=== PATIENT | female | born 1955 | race African-American/Black ===

== ENCOUNTER 2016-11-25 14:47 | Emergency (ER) | payer OTHER ==
[~2016-11-25] VITALS: Ht 170.2 cm; Wt 104.3 kg
[~2016-11-25 14:47] MED LIST: CEPH-264 PO; TRAM50TA PO; TRIA15CR2 TP
[2016-11-25 16:02] LABS: HEMOGLOBIN ISTAT 14.6 gm/dL; POTASSIUM ISTAT 3.8 mmol/L (3.5-5.0)
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
[2016-11-25 16:47] LABS: BILIRUBIN,URINE NEG (NEG); CLARITY,URINE CLEAR; COLOR,URINE YELLOW; GLUCOSE,URINE NEG (NEG); NITRITE,URINE NEG (NEG); UROBILINOGEN,URINE 0.2 mg/dL (0.2 mg/dL)
[2016-11-25 16:48] LABS: AMORPHOUS SEDIMENT,UR PRESENT /HPF; BACTERIA,URINE FEW /HPF (0-FEW); SQUAMOUS EPITHELIAL CELL,UR OCC /LPF
[2016-11-25] MEDS ORDERED: ONDANSETRON ODT 4 MG TAB.RAPDIS PO ONE (17:30)
[2016-11-25] MEDS ORDERED: SMZ/TMP 800/160MG TABLET. PO ONE (17:30)
[2016-11-25 17:38] VITALS: BP 129/70
== END 2016-11-25 17:39 | disposition home or self-care (01) ==
LOC: ER 14:47
DX: N39.0 Urinary tract infection, site not specified (principal); R51 Headache; R47.81 Slurred speech; I10 Essential (primary) hypertension; J44.9 Chronic obstructive pulmonary disease, unspecified; F17.210 Nicotine dependence, cigarettes, uncomplicated; Z88.1 Allergy status to other antibiotic agents; Z88.6 Allergy status to analgesic agent; Z88.5 Allergy status to narcotic agent; V49.9XXA Car occupant (driver) (passenger) injured in unspecified traffic accident, initial encounter; Y93.89 Activity, other specified; Y99.8 Other external cause status; Y92.89 Other specified places as the place of occurrence of the external cause
CPT/HCPCS: 80047; 81001; 84484; 87086; 99284; Q0162

== ENCOUNTER 2017-07-29 12:11 | Emergency (ER) | payer OTHER ==
[~2017-07-29] VITALS: Ht 165.1 cm; Wt 92.1 kg
--- NOTE | 2017-07-29 12:34 | EKG ---
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
--- NOTE | 2017-07-29 12:36 | PHYS DOC ---
General Chief Complaint: JOHN Stated Complaint: DENTAL/JAW PAIN, SHOULDER PAIN,FLANK PAIN Time Seen by MD: 12:32 Source: patient Exam Limitations: no limitations Problems: History of Present Illness Initial Comments Patient is a 61-year-old female who comes to the ED with multiple complaints. Patient states that yesterday while watching TV she learned that shoulder and jaw pain can be related to heart disease and she is concerned because she has both. Jaw pain: Patient states she's had right lower molar dental pain for the past 2 days described as sharp and throbbing 3 on a pain scale. The pain is worse with eating better with rest patient states that she has had a lifetime of poor oral hygiene and needs multiple teeth pulled she has not seen a dentist in many years. She denies any jaw or gingival swelling no discharge no actual jaw bone pain no headache fever chills or sweats. Shoulder pain: Patient has also had right shoulder pain off and on for the past 3 weeks. Pain is described as muscular 4 on a pain scale at its worst. Pain is only with certain movements he denies numbness tingling weakness or radiating symptoms. No known recent injury. Patient denies chest pain shortness of breath nausea and diaphoresis she is a smoker. No prior cardiac workups no history of chest pain, no family history of coronary artery disease Timing/Duration: constant, other Severity: moderate Modifying Factors: worse with movement, improves with rest Associated Symptoms: cough (chronic), other Allergies: Coded Allergies: acetaminophen (Verified Allergy, Intermediate, 02/16/16) amoxicillin (Verified Allergy, Intermediate, KEFLEX OK, 02/16/16) clavulanic acid (Verified Allergy, Intermediate, 02/16/16) codeine (Verified Allergy, Intermediate, 02/16/16) hydrocodone (Verified Allergy, Intermediate, 02/16/16) Past Medical History Medical History: other (paranoia, depression, COPD, anxiety, chronic sinusitis) Surgical History: other (appendectomy, sinus surgery) Social History Smoker: cigarettes Alcohol: none Drugs: none Review of Systems Constitutional: denies chills, denies diaphoresis, denies fever, denies malaise EENTM: denies ear pain, denies ear discharge, nose congestion, denies throat pain, denies throat swelling, mouth pain, denies mouth swelling Respiratory: cough, denies shortness of breath, denies wheezing Cardiovascular: denies chest pain, denies palpitations, denies syncope Gastrointestinal: denies abdominal pain, denies diarrhea, denies nausea, denies vomiting Genitourinary: denies dysuria, denies frequency, denies hematuria Musculoskeletal: denies back pain, denies joint pain, denies joint swelling, muscle pain, denies muscle stiffness, denies neck pain Psychiatric/Neurological: see HPI, denies headache Hematologic/Lymphatic: denies blood clots, denies easy bleeding, denies easy bruising Physical Exam General Appearance: no apparent distress Eyes: bilateral eye normal inspection, bilateral eye PERRL, bilateral eye EOMI Ear, Nose, Throat: hearing grossly normal, nasal congestion, other (dental caries and poor oral hygiene globally no focal gingival swelling no bony tenderness no purulence airway is patent) Neck: non-tender, full range of motion, supple Respiratory: chest non-tender, no respiratory distress Cardiovascular: normal peripheral pulses, regular rate, rhythm Gastrointestinal: non tender, soft Back: no CVA tenderness, no vertebral tenderness Extremities: no pedal edema, no calf tenderness, other (right deltoid tenderness no swelling ecchymosis or palpable muscle defect, otherwise SITS intact FROM no bony TTP) 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 I-STAT BMP and troponin unremarkable Patient reassured, I discussed signs and symptoms to monitor as well as indications for urgent return to the department. I discussed ghqn-dzk-ororywy prescription medications as well as ubgr-ky-tvqk discussion of departure instructions. Patient's questions were answered and she expressed agreement and understanding of the treatment plan. Departure Time of Disposition: 14:08 Disposition: 01 HOME, SELF-CARE Diagnosis: dental caries, tobaccoism, right shoulder strain Condition: GOOD Patient Instructions: Dental Caries, RICE - Routine Care for Injuries, Easy-to- Read, Smoking Cessation, Tips For Success Additional Instructions: Please review the patient education materials given by ED staff. RICE, see handout. Activity as tolerated. Continue her efforts to stop smoking. Zyoi-mil-obwdzrk ibuprofen for discomfort. Prescription: Clindamycin Listerine gargles 3 times daily after brushing and flossing. Follow-up with your doctor in 5-7 days for recheck. Follow-up with a dentist as soon as possible. Return to ED with new or changing symptoms. JAZZY COONEY DO Jul 29, 2017 12:36
[2017-07-29 13:50] LABS: HEMOGLOBIN ISTAT 12.9 gm/dL; POTASSIUM ISTAT 3.9 mmol/L (3.5-5.0)
[2017-07-29] MEDS ORDERED: CLIN300C8 PO (14:07)
[2017-07-29 14:15] VITALS: BP 144/61
== END 2017-07-29 14:17 | disposition home or self-care (01) ==
LOC: ER 12:11
DX: K02.9 Dental caries, unspecified (principal); S46.911A Strain of unspecified muscle, fascia and tendon at shoulder and upper arm level, right arm, initial encounter; J44.9 Chronic obstructive pulmonary disease, unspecified; F41.9 Anxiety disorder, unspecified; F32.9 Major depressive disorder, single episode, unspecified; F17.210 Nicotine dependence, cigarettes, uncomplicated; Z88.6 Allergy status to analgesic agent; Z88.1 Allergy status to other antibiotic agents; Z88.5 Allergy status to narcotic agent; X58.XXXA Exposure to other specified factors, initial encounter; Y93.89 Activity, other specified; Y99.8 Other external cause status; Y92.89 Other specified places as the place of occurrence of the external cause
CPT/HCPCS: 36415; 80047; 84484; 85014; 85018; 93005; 99283

== ENCOUNTER → 2018-01-16 | Outpatient (CLI) | payer MEDICARE ==
[~2018-01-16] MED LIST changes: +CLIN300C8 PO
[2018-01-16 09:48] LABS: CREATININE 0.9 mg/dL (0.6-1.0); GFR 76.8; POTASSIUM 3.7 mmol/L (3.5-5.1)
[2018-01-16 09:50] LABS: BASO # 0.1 x10^3/uL (0.0-0.2); BASO % 1 % (0-3); EOS # 0.4 x10^3/uL (0.0-0.7); EOS % 4 % (0-3); HEMATOCRIT 37.6 % (36.0-47.0); HEMOGLOBIN 12.5 g/dL (12.0-15.5); LYMPH # 2.6 x10^3/uL (1.0-4.8); LYMPH % 32 % (24-48); MEAN CORPUSCULAR HEMOGLOBIN 30 pg (25-35); MEAN CORPUSCULAR HGB CONC 33 g/dL (31-37); MEAN CORPUSCULAR VOLUME 89 fL (79-100); MONO # 0.9 x10^3/uL (0.0-1.1); MONO % 11 % (0-9); NEUT # 4.2 x10^3uL (1.8-7.7); NEUT % 52 % (31-73); PLATELET COUNT 389 x10^3/uL (140-400); RED BLOOD COUNT 4.25 x10^6/uL (3.50-5.40); RED CELL DISTRIBUTION WIDTH 16.3 % (11.5-14.5); WHITE BLOOD COUNT 8.1 x10^3/uL (4.0-11.0)
== END | disposition home or self-care (01) ==
LOC: LAB 08:55
PROVIDERS: ATTEND General Practice
DX: F32.9 Major depressive disorder, single episode, unspecified (principal); E55.9 Vitamin D deficiency, unspecified; I10 Essential (primary) hypertension; J44.9 Chronic obstructive pulmonary disease, unspecified; R79.89 Other specified abnormal findings of blood chemistry; Z87.891 Personal history of nicotine dependence
CPT/HCPCS: 36415; 80048; 80061; 82306; 85025

== ENCOUNTER → 2018-02-05 | Outpatient (CLI) | payer MEDICARE ==
--- NOTE | 2018-02-13 09:00 | RAD ---
DATE: 02/05/2018 3:00 PM EXAM: MAMMO ABDULKADIR SCREENING BILATERAL HISTORY: routine screening evaluation. COMPARISON: 12/01/2015, 12/12/2016 Bilateral CC and MLO views of the breasts were performed. Bilateral breast tomosynthesis was performed in CC and MLO projections. This study was interpreted with the benefit of Computerized Aided Detection (CAD ). Breast Density: The breast parenchyma is primarily fatty replaced. Breast parenchyma level density A. FINDINGS: No suspicious masses, microcalcifications or architectural distortion is present to suggest malignancy in either breast. The visualized axillae are unremarkable. IMPRESSION: No mammographic evidence of malignancy. BI-RADS CATEGORY: 1 NEGATIVE RECOMMENDED FOLLOW-UP: 12M 12 MONTH FOLLOW-UP Annual screening mammography is recommended, unless clinically indicated sooner based on symptoms or change in physical exam. PQRS compliance statement: Patient information was entered into a reminder system with a target due date for the next mammogram. Mammography is a sensitive method for finding small breast cancers, but it does not detect them all and is not a substitute for careful clinical examination. A negative mammogram does not negate a clinically suspicious finding and should not result in delay in biopsying a clinically suspicious abnormality. "Our facility is accredited by the [employer] Mammography Program." JACIELD
== END | disposition home or self-care (01) ==
LOC: MAMMO 12:38
PROVIDERS: ATTEND General Practice
DX: Z12.31 Encounter for screening mammogram for malignant neoplasm of breast (principal); I10 Essential (primary) hypertension; E78.5 Hyperlipidemia, unspecified; E55.9 Vitamin D deficiency, unspecified; J44.9 Chronic obstructive pulmonary disease, unspecified; Z87.891 Personal history of nicotine dependence; Z88.1 Allergy status to other antibiotic agents; Z88.8 Allergy status to other drugs, medicaments and biological substances; Z88.5 Allergy status to narcotic agent; Z88.6 Allergy status to analgesic agent
CPT/HCPCS: 77063; 77067

== ENCOUNTER → 2019-03-18 | Outpatient (CLI) | payer MEDICARE ==
--- NOTE | 2019-03-18 15:24 | RAD ---
DATE: 03/18/2019 EXAM: MAMMO ABDULKADIR SCREENING BILATERAL HISTORY: Routine screening COMPARISON: 12/01/2015, 12/12/2016, 02/05/2018 mammographic exams This study was interpreted with the benefit of Computerized Aided Detection (CAD). Breast Density: SCATTERED The breast parenchyma shows scattered fibroglandular densities. Breast parenchyma level B. FINDINGS: No new mass, calcification, or distortion. IMPRESSION: Stable BI-RADS CATEGORY: 1 NEGATIVE RECOMMENDED FOLLOW-UP: 12M 12 MONTH FOLLOW-UP PQRS compliance statement: Patient information was entered into a reminder system with a target due date in one year for the next mammogram. Mammography is a sensitive method for finding small breast cancers, but it does not detect them all and is not a substitute for careful clinical examination. A negative mammogram does not negate a clinically suspicious finding and should not result in delay in biopsying a clinically suspicious abnormality. "Our facility is accredited by the [employer] Mammography Program."
== END | disposition home or self-care (01) ==
LOC: MAMMO 09:54
PROVIDERS: ATTEND General Practice
DX: Z12.31 Encounter for screening mammogram for malignant neoplasm of breast (principal)
CPT/HCPCS: 77063; 77067

== ENCOUNTER 2019-06-07 12:34 | Emergency (ER) | payer MEDICARE ==
[~2019-06-07] VITALS: Ht 165.1 cm; Wt 92.1 kg
[2019-06-07 12:45] VITALS: BP 169/66
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
[2019-06-07] MEDS ORDERED: IPRATRPIUM/ALBUTEROL 0.5/2.5MG 3 ML NEBU. NEB ONE (13:00)
[2019-06-07] MEDS ORDERED: predniSONE 10 MG TABLET PO ONE (13:00)
[2019-06-07] MEDS ORDERED: PRED50TA PO (13:19)
[2019-06-07] MEDS ORDERED: ALBU2.5V8 IH (13:19)
== END 2019-06-07 13:23 | disposition home or self-care (01) ==
LOC: ER 12:34
DX: J45.21 Mild intermittent asthma with (acute) exacerbation (principal); F41.9 Anxiety disorder, unspecified; J44.9 Chronic obstructive pulmonary disease, unspecified; I10 Essential (primary) hypertension; F32.9 Major depressive disorder, single episode, unspecified; F17.200 Nicotine dependence, unspecified, uncomplicated; Z88.1 Allergy status to other antibiotic agents; Z88.5 Allergy status to narcotic agent; Z88.8 Allergy status to other drugs, medicaments and biological substances
CPT/HCPCS: 94640; 99283; J7512; J7620

== ENCOUNTER 2019-06-14 22:30 | Inpatient (IN) | payer MEDICARE ==
[~2019-06-14] VITALS: Ht 165.1 cm; Wt 108.0 kg
[~2019-06-14 22:30] MED LIST changes: +ALBU2.5V8 IH; +PRED50TA PO
--- NOTE | 2019-06-14 23:09 | PHYS DOC ---
Past History Past Medical History: Anxiety, Asthma, COPD, Depression, Hypertension, Lung Disease, Other Past Surgical History: Other Additional Past Surgical Histo: sinus surgery Smoking: Less than 1pk/day Alcohol Use: None Drug Use: None Adult General Chief Complaint Chief Complaint: SHORTNESS OF BREATH [facility] HPI 63-year-old female presents with shortness of breath. She has had worsening shortness of breath for the last 2 days. This evening, she just feels that she can't get comfortable when she tries to lie down to go to sleep. She is feeling more short of breath. She's had increased cough with yellowish sputum. Patient has a history of COPD. She was seen here one week ago and placed on oral prednisone. She was feeling better after that episode, but that worse last couple days. Patient denies fever or chills. She also complains of an abdominal fullness. She doesn't say it hurts is just that it feels more full she doesn't know why. She has not increased her baseline 2 L of oxygen. Her oxygen saturations been okay, she just feels more short of breath. Review of Systems Review of Systems Constitutional: Denies fever or chills [] Eyes: Denies change in visual acuity, redness, or eye pain [] HENT: Nasal congestion[] Respiratory: Productive cough with shortness of breath [] Cardiovascular: No additional information not addressed in HPI [] GI: Abdominal fullness. Denies nausea, vomiting, bloody stools or diarrhea [] : Denies dysuria or hematuria [] Musculoskeletal: Denies back pain or joint pain [] Integument: Denies rash or skin lesions [] Neurologic: Denies headache, focal weakness or sensory changes [] Endocrine: Denies polyuria or polydipsia [] All other systems were reviewed and found to be within normal limits, except as documented in this note. Allergies Allergies Allergies Coded Allergies Type Severity Reaction Last Updated Verified codeine Allergy Intermediate 02/16/16 Yes hydrocodone Allergy Intermediate 02/16/16 Yes Physical Exam Physical Exam Constitutional: Well developed, morbidly obese, well nourished, no acute distress, non-toxic appearance. [] HENT: Normocephalic, atraumatic, bilateral external ears normal, oropharynx moist, no oral exudates, nose normal. [] Eyes: PERRLA, EOMI, conjunctiva normal, no discharge. [] Neck: Normal range of motion, no tenderness, supple, no stridor. [] Cardiovascular:Heart rate regular rhythm, no murmur [] Lungs & Thorax: Expiratory wheezes at the left base. Decreased breath sounds throughout bilaterally[] Abdomen: Bowel sounds normal, soft, no tenderness, no masses, no pulsatile masses. [] Skin: Warm, dry, no erythema, no rash. [] Back: No tenderness, no CVA tenderness. [] Extremities: No tenderness, no cyanosis, no clubbing, ROM intact, no edema. [] Neurologic: Alert and oriented X 3, normal motor function, normal sensory function, no focal deficits noted. [] Psychologic: Affect normal, judgement normal, mood normal. [] Current Patient Data Vital Signs Vital Signs Date Time Temp Pulse Resp B/P (MAP) Pulse Ox O2 Delivery O2 Flow Rate FiO2 06/14/19 22:44 97.9 91 20 88 Room Air EKG EKG Sinus rhythm, rate 88, normal axis, no ST elevations or depressions. Prolonged QT[] Radiology/Procedures Radiology/Procedures [] Course & Med Decision Making Course & Med Decision Making Pertinent Labs and Imaging studies reviewed. (See chart for details) The patient appears to be having a COPD exacerbation. I will treat her with a DuoNeb treatment and 125 of Solu-Medrol. The patient was replaced on oral steroids by her primary care physician after her ED visit 7 days ago. She appears to be failing outpatient COPD treatment. I will admit her to the hospital. She is in agreement with this plan. I spoke with Dr. Cooley and he has accepted her for admission. [] Dragon Disclaimer Dragon Disclaimer This electronic medical record was generated, in whole or in part, using a voice recognition dictation system. Departure Departure: Impression: Primary Impression: Hypokalemia Additional Impression: COPD exacerbation Disposition: ADMITTED INPATIENT Admitting Physician: Marcos Cooley Condition: STABLE Referrals: LAUREL ESPINOSA MD (PCP) Problem Qualifiers RAJAN DAVIS DO Jun 14, 2019 23:09
[2019-06-14] MEDS ORDERED: methylPREDNISolone SOD SUCC PF 125 MG/2 ML VIAL. IV ONE (23:30)
[2019-06-14] MEDS ORDERED: IPRATRPIUM/ALBUTEROL 0.5/2.5MG 3 ML NEBU. NEB ONE (23:30)
[2019-06-14 23:37] LABS: BASO # 0.1 x10^3/uL (0.0-0.2); BASO % 1 % (0-3); EOS # 0.1 x10^3/uL (0.0-0.7); EOS % 1 % (0-3); HEMATOCRIT 38.7 % (36.0-47.0); HEMOGLOBIN 12.8 g/dL (12.0-15.5); LYMPH # 3.7 x10^3/uL (1.0-4.8); LYMPH % 24 % (24-48); MEAN CORPUSCULAR HEMOGLOBIN 29 pg (25-35); MEAN CORPUSCULAR HGB CONC 33 g/dL (31-37); MEAN CORPUSCULAR VOLUME 87 fL (79-100); MONO # 1.2 x10^3/uL (0.0-1.1); MONO % 8 % (0-9); NEUT # 10.5 x10^3uL (1.8-7.7); NEUT % 67 % (31-73); PLATELET COUNT 398 x10^3/uL (140-400); RED BLOOD COUNT 4.48 x10^6/uL (3.50-5.40); WHITE BLOOD COUNT 15.6 x10^3/uL (4.0-11.0)
[2019-06-14 23:44] LABS: CALCIUM 9.1 mg/dL (8.5-10.1); GFR 67.8
[2019-06-14 23:50] LABS: ALBUMIN 3.7 g/dL (3.4-5.0); TOTAL BILIRUBIN 0.2 mg/dL (0.2-1.0); TOTAL PROTEIN 7.3 g/dL (6.4-8.2)
[2019-06-14 23:59] LABS: % BANDS 3 % (0-9); % LYMPHS 26 % (24-48); % MONOS 7 % (0-10); % SEGS 64 % (35-66); PLT ESTIMATE ADEQUATE (ADEQUATE)
[2019-06-15] LABS: ANISOCYTOSIS SLIGHT; HYPERSEGS PRESENT; SMUDGE CELLS PRESENT
[2019-06-15] MEDS ORDERED: ONDANSETRON PF 4 MG/2 ML VIAL. IV PRN
[2019-06-15 00:01] LABS: POLYCHROMASIA SLIGHT
[2019-06-15 00:05] LABS: CLARITY,URINE HAZY; COLOR,URINE STRAW
[2019-06-15 00:06] LABS: BACTERIA,URINE MOD /HPF (0-FEW); BILIRUBIN,URINE NEG (NEG); GLUCOSE,URINE NEG (NEG); NITRITE,URINE NEG (NEG); RBC,URINE OCC /HPF (0-2); SQUAMOUS EPITHELIAL CELL,UR FEW /LPF; UROBILINOGEN,URINE 0.2 mg/dL (0.2 mg/dL)
[2019-06-15 00:30] VITALS: BP 153/82
[2019-06-15] MEDS ORDERED: LORazepam 1 MG TABLET PO ONE ×2 (00:30→11:15)
[2019-06-15] MEDS ORDERED: POTASSIUM CHLORIDE 20 MEQ TABLET.ER. PO ONE (00:30)
[2019-06-15] MEDS ORDERED: BENZ-8 PO (03:36)
[2019-06-15] MEDS ORDERED: HYDR50CA2 PO (03:36)
[2019-06-15] MEDS ORDERED: FLUO40CA2 PO (03:36)
[2019-06-15] MEDS ORDERED: AMOX1TAB11 PO (03:36)
[2019-06-15] MEDS ORDERED: AMLO10TA8 PO (03:36)
[2019-06-15] MEDS ORDERED: ATOR20TA PO (03:36)
[2019-06-15] MEDS ORDERED: PRED-220 PO (03:36)
--- NOTE | 2019-06-15 03:38 | RAD ---
CHEST PA LATERAL INDICATION: Dyspnea, COPD, emphysema, asthma. COMPARISON STUDY: None. FINDINGS: Lungs: Hyperexpanded lung volume. No pulmonary mass or consolidation. The tracheobronchial tree and hilar structures are normal. Pleura: No pleural effusion or pneumothorax. Heart and Mediastinum: Cardiomegaly. Degenerative changes spine. Bones and Soft Tissues: The bones and soft tissues are within normal limits. IMPRESSION: Hyperexpanded lung volume. No consolidation. Electronically signed by: Seven Messina MD (06/15/2019 3:36 AM) [facility]
[2019-06-15] MEDS ORDERED: LORA10TA3 PO (03:49)
[2019-06-15] MEDS ORDERED: MULT-251 PO (03:49)
[2019-06-15] MEDS ORDERED: ASPI-630 PO (03:49)
[2019-06-15] MEDS ORDERED: FLUT16SP21 NS (03:49)
[2019-06-15] MEDS ORDERED: MELA5TAB11 SL (03:49)
[2019-06-15] MEDS ORDERED: IRON1CAP14 PO (03:49)
[2019-06-15] MEDS ORDERED: PROC10TA2 PO (03:54)
[2019-06-15] MEDS ORDERED: IPRATRPIUM/ALBUTEROL 0.5/2.5MG 3 ML NEBU. ONE (04:36)
[2019-06-15] MEDS: IPRATRPIUM/ALBUTEROL 0.5/2.5MG 3 ML NEBU. NEB SCH ×4 (05:07→21:22)
[2019-06-15 05:58] VITALS: BP 165/91
[2019-06-15] MEDS: MULTIVITAMIN I-VITE TABLET. PO SCH (08:48)
[2019-06-15] MEDS: PROCHLORPERAZINE 5 MG TABLET. PO SCH ×3 (08:49→21:07)
[2019-06-15] MEDS: MULTIVITAMIN with MINERAL TABLET. PO SCH (08:49)
[2019-06-15] MEDS: BENZONATATE 100 MG CAPSULE. PO SCH ×3 (08:49→21:07)
[2019-06-15] MEDS: amLODIPine BESYLATE 10 MG TABLET PO SCH (08:50)
[2019-06-15] MEDS: CETIRIZINE HCL 10 MG TABLET PO SCH (08:50)
[2019-06-15] MEDS: FLUoxetine HCL 20 MG CAPSULE PO SCH (08:51)
[2019-06-15] MEDS: FLUTICASONE 50MCG/NASAL SPRAY 16GM BOTTLE. NS SCH (08:51)
[2019-06-15] MEDS: ASPIRIN 81 MG TAB.CHEW PO SCH (08:51)
[2019-06-15] MEDS ORDERED: ATORVASTATIN CALCIUM 20 MG TABLET PO SCH ×2 (09:00→21:00)
[2019-06-15] MEDS ORDERED: predniSONE 10 MG TABLET PO SCH ×2 (09:00→09:15)
[2019-06-15 11:11] VITALS: BP 179/84
--- NOTE | 2019-06-15 12:42 | HP ---
ADMIT DATE: 06/14/2019 HISTORY OF PRESENT ILLNESS: The patient is a 63-year-old -French female patient who came to the Emergency Room complaining of shortness of breath and it has been worsening over the last 2 days. On the day of admission, she just feels that she cannot get comfortable when she tries to lie down to go to sleep. She is feeling more short of breath, had increased cough with yellowish sputum. The patient has a history of COPD. She was seen at the Emergency Room 1 week ago, was placed on oral prednisone. She was feeling better after that episode, that worsened last couple of days. The patient denied any fevers or chills. She also complains of abdominal fullness. She does not say it hurts, just that feels more full. She does not know why. She has not noted an increase in her oxygen requirement. Her oxygen saturation has been okay whole day. Denied any chest pain. She was extensively investigated in the Emergency Room. Her EKG showed that she was in sinus rhythm with a heart rate of 88 per minute with normal axis, no ST segment elevation or depression. She does apparently has prolonged QT interval. Her chest x-ray showed that she has hyperexpanded lung volumes, no pulmonary mass or consolidation. Tracheobronchial tree and hilar structures are normal. There are no pleural effusion or pneumothorax, cardiomegaly, degenerative changes of the spine and the bones and soft tissues are within normal limits. Her labs showed hypokalemia and leukocytosis; however, she is given a large dose of steroids. Urinalysis was unremarkable. She was admitted. She was given 125 mg of methyl prednisolone, sodium succinate, has had received multiple treatment as well as lorazepam and was admitted to continue with steroids, bronchodilators and also antibiotic. PAST MEDICAL HISTORY: Significant for hypertension, hyperlipidemia, morbid obesity, obstructive sleep apnea. She has chronic obstructive pulmonary disease that is oxygen dependent. PAST SURGICAL HISTORY: Significant for sinus surgery, ear surgery, bilateral cataract extraction, tonsillectomy and colonoscopy. ALLERGIES: SHE IS ALLERGIC TO CODEINE AND HYDROCODONE. MEDICATIONS: She is currently on following medications: She is on loratadine 10 mg once a day, Fusion Plus capsule 1 capsule daily, atorvastatin calcium 20 mg once at bedtime, amlodipine besylate 10 mg once a day. She is on aspirin 81 mg once a day, tramadol 50 mg every 4-6 hours, and fluoxetine 40 mg daily, hydroxyzine pamoate 50 mg every 8 hours, benzonatate 100 mg capsule 3 times a day and Flonase 2 sprays to each nostril once a day. She is on prochlorperazine maleate 10 mg 3 times a day and she was on a huge dose of prednisone 50 mg daily, triamcinolone acetonide cream applied topically twice a day, multivitamin with mineral 1 tablet once a day, melatonin 5 mg at bedtime. REVIEW OF SYSTEMS: As per history of present illness. PHYSICAL EXAMINATION GENERAL: On arrival to the Emergency Room, the patient was slightly tachypneic, but there was no pallor, jaundice, cyanosis or thyromegaly. No jugular venous distention. No lower limb edema. VITAL SIGNS: Heart rate was 91, blood pressure was 187/70, temperature was 97.9, respiratory rate was 20, and her oxygen saturation was only 88% on room air. HEAD, EYES, EARS, NOSE AND THROAT: Showed normocephalic, atraumatic. NECK: Supple. HEART: Showed normal first and second heart sounds with no gallop, rub or murmur. CHEST: Shows central trachea. Apparently, she has expiratory wheezes at the left base and decreased breath sounds throughout bilaterally. ABDOMEN: Distended, soft, nontender. No guarding or rigidity. No organomegaly. All hernial orifice intact. Bowel sounds normal. NEUROLOGIC: She was awake, alert, oriented x 3 with no obvious motor or sensory deficit. Her affect, judgment and mood are normal. LABORATORY DATA: While in the Emergency Room, she has had a chest x-ray, which showed that the patient has hyperexpanded lung volumes, no consolidation. Her lab work showed a white cell count 15,600, hemoglobin 12.8, hematocrit 38.7, MCV 87 and platelet count 398,000 with normal manual differential. Serum sodium was 144, potassium 3, chloride 103, bicarbonate 28, anion gap of 313, BUN 12, creatinine 1, estimated GFR was 68 mL per minute. Her glucose was 127, calcium was 9.1. Total bilirubin, AST, ALT were normal. Alkaline phosphatase slightly elevated. Total protein was 7.3, albumin 3.7. Urinalysis showed the urine was straw colored, hazy with a pH of 6.5, specific gravity of 1.020. There is a large amount of protein. The urine was negative for glucose, ketones, blood, nitrite and leukocyte esterase. There are no rbc's, 5-10 wbc's, and moderate amount of bacteria. PLAN: The patient was admitted with chronic obstructive pulmonary disease exacerbation and hypokalemia. She was treated with potassium and was given Solu-Medrol as well as breathing treatment. We will continue with Augmentin and continue with Solu-Medrol 40 mg IV q.8 hourly. We will monitor her response closely and decide further management accordingly. LIA CARDONA MD DR: HAWA/rio JOB#: [id number] / [id number]
--- NOTE | 2019-06-15 13:07 | PN ---
DATE: 06/15/2019 SUBJECTIVE: The patient is sitting on the edge of the bed, eating her lunch comfortably, in no apparent distress. On questioning her, she is feeling generally much better, continued to have nasal stuffiness and pain in her right ear; chest tightness and shortness of breath, although generally much improved than yesterday. PHYSICAL EXAMINATION: GENERAL: When I examined her this morning, she looked well and was clearly in no apparent respiratory distress. No pallor, jaundice, cyanosis. No lymphadenopathy or thyromegaly. No jugular venous distention. No lower limb edema. VITAL SIGNS: Her heart rate was 91, blood pressure was 179/84, temperature was 97.6, respiratory rate was 22 and oxygen saturation was 92% on 2 liters of oxygen. HEAD, EYES, EARS, NOSE AND THROAT: Normocephalic, atraumatic. NECK: Supple. HEART: Showed normal first and second heart sounds with no gallop, rub or murmur. CHEST: Clear to auscultation. No crepitation or rhonchi. ABDOMEN: Distended, soft, nontender. No guarding or rigidity. No organomegaly. All hernial orifice intact. Bowel sounds normal. NEUROLOGIC: She was awake, alert, responding appropriately. All cranial nerves intact. She moves extremities without difficulty. ASSESSMENT: 1. Chronic obstructive pulmonary disease exacerbation. 2. Hypokalemia. 3. Hypertension. 4. Hyperlipidemia. 5. Morbid obesity. 6. Obstructive sleep apnea. PLAN: My plan is to start her on Solu-Medrol 40 mg IV q. 8 hourly. Continue with all other medication. Continue with Augmentin. I will repeat her labs, her BMP today, I will repeat all her labs tomorrow. LIA CARDONA MD DR: HAWA/rio JOB#: [id number] / [id number]
[2019-06-15 13:45] LABS: CREATININE 1.1 mg/dL (0.6-1.0); GFR 60.7; POTASSIUM 3.8 mmol/L (3.5-5.1)
[2019-06-15 14:47] VITALS: BP 171/75
[2019-06-15] MEDS: methylPREDNISolone SOD SUCC PF 40 MG/ML VIAL. IV SCH ×2 (15:06→22:28)
[2019-06-15] MEDS: LORazepam 0.5 MG TABLET PO PRN (17:53)
[2019-06-15 19:13] VITALS: BP 171/73
[2019-06-15] MEDS: MELATONIN 3 MG TABLET PO SCH (21:07)
[2019-06-15] MEDS: LACTOBACILLUS RHAMNOSUS GG 1 CAPSULE. PO SCH (21:07)
[2019-06-15] MEDS: AMOXICILLIN/K CLAV 875/125MG TABLET. PO SCH (21:07)
--- NOTE | 2019-06-15 21:51 | EKG ---
[address] [address] Test Date: 2019-06-14 Test Time: 22:51:44 Pat Name: JOI LOCO Department: Room: Gender: F Claims Manager: : 1955 Requested By: RAJAN DAVIS Order Number: [id number] Reading MD: Measurements Intervals [place] Rate: 88 P: 56 CO: 132 QRS: 59 QRSD: 88 T: 58 QT: 394 QTc: 480 Interpretive Statements SINUS RHYTHM PROLONGED QT NO SPECIFIC ECG ABNORMALITIES RI6.01 No previous ECG available for comparison
[2019-06-15 22:22] VITALS: BP 132/73
[2019-06-16] MEDS: LORazepam 0.5 MG TABLET PO PRN ×3 (03:14→14:22)
[2019-06-16] MEDS: IPRATRPIUM/ALBUTEROL 0.5/2.5MG 3 ML NEBU. NEB SCH ×4 (05:30→21:18)
[2019-06-16 05:34] VITALS: BP 163/80
[2019-06-16] MEDS: methylPREDNISolone SOD SUCC PF 40 MG/ML VIAL. IV SCH ×2 (06:00→16:54)
[2019-06-16 06:35] LABS: HEMATOCRIT 38.2 % (36.0-47.0); HEMOGLOBIN 12.7 g/dL (12.0-15.5); RED BLOOD COUNT 4.41 x10^6/uL (3.50-5.40); RED CELL DISTRIBUTION WIDTH 16.1 % (11.5-14.5); WHITE BLOOD COUNT 17.1 x10^3/uL (4.0-11.0)
[2019-06-16] MEDS: PROCHLORPERAZINE 5 MG TABLET. PO SCH ×3 (06:40→20:16)
[2019-06-16 06:44] LABS: ALBUMIN 3.4 g/dL (3.4-5.0); ALBUMIN/GLOBULIN RATIO 0.9 (1.0-1.7); CALCIUM 8.6 mg/dL (8.5-10.1); GFR 67.8; POTASSIUM 4.1 mmol/L (3.5-5.1); TOTAL BILIRUBIN 0.2 mg/dL (0.2-1.0); TOTAL PROTEIN 7.4 g/dL (6.4-8.2)
[2019-06-16] MEDS: BENZONATATE 100 MG CAPSULE. PO SCH ×3 (09:27→20:16)
[2019-06-16] MEDS: AMOXICILLIN/K CLAV 875/125MG TABLET. PO SCH ×2 (09:27→20:16)
[2019-06-16] MEDS: FLUoxetine HCL 20 MG CAPSULE PO SCH (09:27)
[2019-06-16] MEDS: LACTOBACILLUS RHAMNOSUS GG 1 CAPSULE. PO SCH ×2 (09:27→20:16)
[2019-06-16] MEDS: amLODIPine BESYLATE 10 MG TABLET PO SCH (09:28)
[2019-06-16] MEDS: MULTIVITAMIN with MINERAL TABLET. PO SCH (09:28)
[2019-06-16] MEDS: MULTIVITAMIN I-VITE TABLET. PO SCH (09:28)
[2019-06-16] MEDS: FLUTICASONE 50MCG/NASAL SPRAY 16GM BOTTLE. NS SCH (09:28)
[2019-06-16] MEDS: ASPIRIN 81 MG TAB.CHEW PO SCH (09:28)
[2019-06-16] MEDS: CETIRIZINE HCL 10 MG TABLET PO SCH (09:28)
[2019-06-16 11:17] VITALS: BP 184/91
--- NOTE | 2019-06-16 11:31 | PN ---
DATE: 06/16/2019 SUBJECTIVE: The patient is resting, slightly propped up, sleeping comfortably on BiPAP machine. The nursing staff stated that she is still feeling generally much improved. She is now able to expectorate and has generally much less shortness of breath. PHYSICAL EXAMINATION: GENERAL: When I examined her, she looked well and was clearly in no apparent respiratory distress, slightly pale, but no jaundice, cyanosis or thyromegaly. No jugular venous distention. No limb edema. VITAL SIGNS: Her heart rate was 82, blood pressure was 163/80, temperature was 97.8, respiratory rate 20, and oxygen saturation was 91% on 2 liters of oxygen. HEAD, EYES, EARS, NOSE AND THROAT: Showed normocephalic, atraumatic. NECK: Supple. HEART: Showed normal first and second heart sounds with no gallop, rub or murmur. CHEST: Clear to auscultation. No crepitation or rhonchi. ABDOMEN: Distended, soft, nontender. NEUROLOGIC: She was sleepy, but arousable. All cranial nerves intact. She moves extremities without difficulty. She ambulates without assistance or assistive devices. Her intake over the last 24 hours and output are incompletely recorded. LABORATORY DATA: Her lab work this morning showed a white cell count 17,000, hemoglobin 12.7, hematocrit 38, MCV 87, and platelet count of 402,000. Her chemistry showed a serum sodium 139, potassium 4.1, chloride 102, bicarbonate 28, anion gap of 9, BUN 18, creatinine 1, estimated GFR was 68 mL per minute. Her glucose 160, calcium was 8.6. Total bilirubin, AST, ALT, alkaline phosphatase were normal. Total protein was 7.4, albumin 3.4. Urinalysis was essentially unremarkable. ASSESSMENT: 1. Chronic obstructive pulmonary disease exacerbation. 2. Hypokalemia, resolved. Her potassium is 4.1. 3. Hypertension, reasonably controlled. 4. Hyperlipidemia. 5. Morbid obesity. 6. Obstructive sleep apnea. 7. [id number] sinusitis. PLAN: My plan is to continue with IV Solu-Medrol. Continue with oral Augmentin. Continue with bronchodilators and all other medications. LIA CARDONA MD DR: HAWA/rio JOB#: [id number] / [id number]
[2019-06-16 15:35] VITALS: BP 190/83
[2019-06-16] MEDS ORDERED: IPRATRPIUM/ALBUTEROL 0.5/2.5MG 3 ML NEBU. NEB SCH (16:00)
[2019-06-16 19:51] VITALS: BP 180/91
[2019-06-16] MEDS: hydrALAZINE 10 MG TABLET PO SCH (20:17)
[2019-06-16] MEDS: MELATONIN 3 MG TABLET PO SCH (20:17)
[2019-06-16 22:33] VITALS: BP 177/96
[2019-06-17] MEDS: LORazepam 0.5 MG TABLET PO PRN ×2 (03:24→09:02)
[2019-06-17] MEDS: IPRATRPIUM/ALBUTEROL 0.5/2.5MG 3 ML NEBU. NEB SCH ×2 (05:20→08:59)
[2019-06-17] MEDS: methylPREDNISolone SOD SUCC PF 40 MG/ML VIAL. IV SCH (05:42)
[2019-06-17 06:21] LABS: HEMATOCRIT 37.6 % (36.0-47.0); HEMOGLOBIN 12.1 g/dL (12.0-15.5); RED BLOOD COUNT 4.3 x10^6/uL (3.50-5.40); RED CELL DISTRIBUTION WIDTH 16.3 % (11.5-14.5); WHITE BLOOD COUNT 21.1 x10^3/uL (4.0-11.0)
[2019-06-17 06:25] LABS: CALCIUM 8.6 mg/dL (8.5-10.1); CREATININE 0.9 mg/dL (0.6-1.0); GFR 76.5; POTASSIUM 3.9 mmol/L (3.5-5.1)
[2019-06-17 06:29] VITALS: BP 177/98
[2019-06-17] MEDS ORDERED: ACETAMINOPHEN 325 MG TABLET PO PRN (07:15)
[2019-06-17] MEDS: MULTIVITAMIN I-VITE TABLET. PO SCH (07:31)
[2019-06-17] MEDS: CETIRIZINE HCL 10 MG TABLET PO SCH (07:31)
[2019-06-17] MEDS: hydrALAZINE 10 MG TABLET PO SCH (07:32)
[2019-06-17] MEDS: AMOXICILLIN/K CLAV 875/125MG TABLET. PO SCH (07:32)
[2019-06-17] MEDS: PROCHLORPERAZINE 5 MG TABLET. PO SCH (07:32)
[2019-06-17] MEDS: ASPIRIN 81 MG TAB.CHEW PO SCH (07:32)
[2019-06-17] MEDS: MULTIVITAMIN with MINERAL TABLET. PO SCH (07:32)
[2019-06-17] MEDS: FLUoxetine HCL 20 MG CAPSULE PO SCH (07:32)
[2019-06-17] MEDS: amLODIPine BESYLATE 10 MG TABLET PO SCH (07:32)
[2019-06-17] MEDS: FLUTICASONE 50MCG/NASAL SPRAY 16GM BOTTLE. NS SCH (07:33)
[2019-06-17] MEDS: BENZONATATE 100 MG CAPSULE. PO SCH (07:33)
[2019-06-17] MEDS: LACTOBACILLUS RHAMNOSUS GG 1 CAPSULE. PO SCH (07:33)
[2019-06-17 09:43] VITALS: BP 181/85
[2019-06-17] MEDS ORDERED: UMEC1DIS IH (13:05)
[2019-06-17] MEDS ORDERED: HYDR-2868 PO (13:16)
--- NOTE | 2019-06-17 14:53 | DS ---
DATE OF DISCHARGE: 06/17/2019 HOSPITAL COURSE: The patient is a 63-year-old -[place] female patient who came to the Emergency Room complaining of shortness of breath, has been worsening over the last 2 days. She has also increased cough with yellowish sputum. The patient has a history of COPD. She was seen at the Emergency Room 1 week ago and placed on oral prednisone. She was feeling better after that episode. It worsened last couple of days. The patient denied any fever or chills. She was complaining of abdominal fullness. She does not say it hurts, just feels that that feels more full. Her oxygen saturation has been okay the whole day. Denied any chest pain. She was extensively investigated in the Emergency Room. Her EKG showed that she was in sinus rhythm at a rate of 88 per minute. Her chest x-ray showed that she has hyperexpanded lung volumes, no pulmonary mass or consolidation. Tracheobronchial tree and hilar structures are normal. There are no pleural effusion, no pneumothorax, cardiomegaly, degenerative changes of the spine. The bone and soft tissues are within normal limit. Her labs showed that she has marked hypokalemia and leukocytosis; however, she was given a large dose of steroids. Her urinalysis was unremarkable. She was treated with Solu-Medrol and she also has sinusitis, so we continued her Augmentin 875 mg twice a day. She continued to use her BiPAP machine for her obstructive sleep apnea and she did actually very well. PHYSICAL EXAMINATION: GENERAL: When I saw her today, she looked well and was clearly in no apparent respiratory distress, slightly pale, but no jaundice, cyanosis or thyromegaly. No jugular venous distention. No limb edema. VITAL SIGNS: Her heart rate was 95, blood pressure was 181/85, temperature was 98.2, respiratory rate was 24, and oxygen saturation was 93% on room air. HEAD, EYES, EARS, NOSE AND THROAT: Showed normocephalic, atraumatic. NECK: Supple. HEART: Showed normal first and second heart sounds with no gallop, rub or murmur. CHEST: Clear to auscultation. No crepitation or rhonchi. ABDOMEN: Distended, soft, nontender. No guarding or rigidity. No organomegaly. All hernial orifice intact. Bowel sounds normal. NEUROLOGIC: She is awake, alert, responding appropriately. All cranial nerves intact. EXTREMITIES: She moves extremities without difficulty. She ambulates without assistance or assistive devices. LABORATORY DATA: This morning showed a white cell count 21,000, hemoglobin 12, hematocrit 37, MCV 87 and platelet count of 128,000. Serum sodium was 138, potassium 3.9, chloride 102, bicarbonate 28, anion gap of 8, BUN 15, creatinine 0.9, estimated GFR was 76 mL per minute. Her glucose was 110, calcium was 8.6. Urinalysis was unremarkable and urine culture and sensitivity was negative. DISCHARGE MEDICATIONS: The patient was discharged home to continue on Anoro Ellipta 1 inhalation once a day, albuterol sulfate 2 puffs every 4 hours as needed, Augmentin 875 mg twice a day with food for 6 more days, aspirin 81 mg once a day, atorvastatin calcium for Lipitor 20 mg every other day, benzonatate 100 mg 3 times a day, fluoxetine 40 mg once a day, Flonase 2 sprays to each nostril once a day, hydroxyzine pamoate 50 mg every 8 hours. Fusion Plus capsule 1 capsule once a day, loratadine 10 mg once a day, melatonin 5 mg at bedtime, multivitamin with mineral 1 tablet once a day, and prochlorperazine maleate 10 mg p.o. 3 times a day ____. She is on tramadol 50 mg every 4-6 hours, and triamcinolone acetonide one application apply topically twice a day. She was also discharged on a tapering course of steroids and lorazepam 0.5 mg every 6 hours as needed. FINAL DISCHARGE DIAGNOSES: 1. Chronic obstructive pulmonary disease exacerbation. 2. Hypokalemia, resolved. Her most recent potassium is 3.9. 3. Acute on chronic sinusitis. 4. Hypertension. 5. Hyperlipidemia. 6. Morbid obesity. 7. Obstructive sleep apnea. LIA CARDONA MD DR: HAWA/rio JOB#: [id number] / [id number]
== END 2019-06-17 13:28 | disposition home or self-care (01) | DRG 189 ==
LOC: ER 22:30 → 1 SOUTH 23:30
PROVIDERS: ADMIT Internal Medicine; ATTEND Internal Medicine
PROC: 5A09357 Assistance with Respiratory Ventilation, Less than 24 Consecutive Hours, Continuous Positive Airway Pressure (ICD-10-PCS; principal; 2019-06-15)
PROC: 5A09357 Assistance with Respiratory Ventilation, Less than 24 Consecutive Hours, Continuous Positive Airway Pressure (ICD-10-PCS; 2019-06-16)
PROC: 5A09357 Assistance with Respiratory Ventilation, Less than 24 Consecutive Hours, Continuous Positive Airway Pressure (ICD-10-PCS; 2019-06-17)
DX: J96.20 Acute and chronic respiratory failure, unspecified whether with hypoxia or hypercapnia (principal); J44.1 Chronic obstructive pulmonary disease with (acute) exacerbation; J32.9 Chronic sinusitis, unspecified; E66.01 Morbid (severe) obesity due to excess calories; E78.5 Hyperlipidemia, unspecified; E87.6 Hypokalemia; J01.80 Other acute sinusitis; G47.33 Obstructive sleep apnea (adult) (pediatric); I10 Essential (primary) hypertension; F32.9 Major depressive disorder, single episode, unspecified; F41.9 Anxiety disorder, unspecified; Z98.41 Cataract extraction status, right eye; Z98.42 Cataract extraction status, left eye; Z99.81 Dependence on supplemental oxygen; Z68.39 Body mass index [BMI] 39.0-39.9, adult; Z88.8 Allergy status to other drugs, medicaments and biological substances
CPT/HCPCS: 36415; 71046; 80048; 80053; 81001; 84484; 85007; 85025; 85027; 87086; 93005; 94640; 96374; J2920; J2930; J7512; J7620; Q0164; 99285-25

== ENCOUNTER → 2019-10-21 | Outpatient (CLI) | payer MEDICARE ==
[~2019-10-21] MED LIST changes: +AMLO10TA8 PO; +AMOX1TAB11 PO; +ASPI-630 PO; +ATOR20TA PO; +BENZ-8 PO; +FLUO40CA2 PO; +FLUT16SP21 NS; +HYDR-2868 PO; +HYDR50CA2 PO; +IRON1CAP14 PO; +LORA10TA3 PO; +MELA5TAB11 SL; +MULT-251 PO; +PRED-220 PO; +PROC10TA2 PO; +UMEC1DIS IH
--- NOTE | 2019-10-21 14:27 | RAD ---
PROCEDURE: ELBOW RIGHT 2V STUDY DATE: 10/21/2019 CLINICAL INDICATION / HISTORY: Right elbow pain.. TECHNIQUE: Right Elbow 2 views COMPARISON: None FINDINGS: Two views of the right elbow demonstrate no evidence of fracture, subluxation, or dislocation. Soft tissues show soft tissue swelling overlying the olecranon process.. IMPRESSION: Findings suggestive of olecranon bursitis. No acute osseous abnormality. Electronically signed by: Reginaldo Urias MD (10/21/2019 2:24 PM) [id number]
== END | disposition home or self-care (01) ==
LOC: PMG 13:56
PROVIDERS: ATTEND Family Medicine
DX: M25.421 Effusion, right elbow (principal)
CPT/HCPCS: 73070

== ENCOUNTER 2019-12-07 22:41 | Emergency (ER) | payer MEDICARE ==
[~2019-12-07] VITALS: Ht 165.1 cm; Wt 110.0 kg
--- NOTE | 2019-12-07 22:43 | PHYS DOC ---
Past History Past Medical History: Anxiety, Asthma, CAD, COPD, Depression, High Cholesterol, Hypertension, Lung Disease, Other Past Surgical History: Other Additional Past Surgical Histo: sinus surgery Smoking: Less than 1pk/day Alcohol Use: None Drug Use: None General Adult HPI: HPI: ".. I ve been feel like want to vomit the last 2 to 3 days.... My sinus have been acting up...I went to [facility].. and she said it was just my sinus drainage...". I have not vomited.. but just really feel like..if..terrible nausea... I get so anxious.. I want to vomit... I know I need to quit smoking.. with my Asthma and... all.... " Patient is a 64 year old female who presents with above complaints severe nausea for the past 2 days. Patient states she has had also increased nasal drainage and congestion. Patient advises she has not been to take her hypertensive meds or other meds because of the nausea. Patient does continue to smoke. Patient denies any travel or specific ill contacts. Patient denies any intake of bad food. Patient normally continued 2 lit.oxygen for episodes of hypoxia, sleep apnea and her chronic COPD. Patient states she has been tachycardic and has not been able to lay down to sleep because of shortness of breath for 2 days. Patient states she is very anxious. Patient denies any intake of bad food. No recent changes in meds. Patient does continue to smoke. Patient has past medical history of hypertension, hyperlipidemia, morbid obesity, obstructive sleep apnea, chronic coronary disease and is oxygen dependent at . Pt. currently follows with Dr. Jim. Review of Systems: Review of Systems: Constitutional: Denies fever or chills Eyes: Denies change in visual acuity HENT: Denies nasal congestion or sore throat Respiratory: Denies cough or shortness of breath Cardiovascular: Denies chest pain or edema GI: Denies abdominal pain, nausea, vomiting, bloody stools or diarrhea : Denies dysuria Musculoskeletal: Denies back pain or joint pain Integument: Denies rash Neurologic: Denies headache, focal weakness or sensory changes Endocrine: Denies polyuria or polydipsia Lymphatic: Denies swollen glands Psychiatric: Denies depression or anxiety Heart Score: HEART Score for Chest Pain: HEART Score for Chest Pain Response (Comments) Value History Moderately Suspicious 1 ECG Nonspecific Repolarizatio 1 Age >45 - < 65 1 Risk Factors 1 or 2 Risk Factors 1 Troponin < Normal Limit 0 Total 4 Risk Factors: Risk Factors: DM, Current or recent (<one month) smoker, HTN, HLP, family history of CAD, obesity. Risk Scores: Score 0 - 3: 2.5% MACE over next 6 weeks - Discharge Home Score 4 - 6: 20.3% MACE over next 6 weeks - Admit for Clinical Observation Score 7 - 10: 72.7% MACE over next 6 weeks - Early Invasive Strategies Family History: Family History: Diabetes and hypertension Current Medications: Current Meds: See nursing for home meds Allergies: Allergies: Allergies Coded Allergies Type Severity Reaction Last Updated Verified codeine Allergy Intermediate 02/16/16 Yes hydrocodone Allergy Intermediate 02/16/16 Yes Physical Exam: PE: Constitutional: Moderate acute distress, non-toxic appearance. [] HENT: Normocephalic, atraumatic, bilateral external ears normal, oropharynx moist, mild postnasal drainage, no oral exudates, nose mild injection and turbinate edema Eyes: PERRLA, EOMI, conjunctiva normal, no discharge. [] Neck: Normal range of motion, no tenderness, supple, no stridor. [] Cardiovascular tachycardia heart rate regular rhythm, no murmur [, PMI to the left Lungs & Thorax: Bilateral breath sounds equal at apex with scattered wheezes on auscultation [] Abdomen: Bowel sounds normal, soft, no tenderness, no masses, no pulsatile masses. Morbidly obese. Old surgery scars. Skin: Warm, dry, no erythema, no rash. [] Back: No tenderness, no CVA tenderness. [] Extremities: No tenderness, no cyanosis, no clubbing, ROM intact, bilateral ankle edema. [] Neurologic: Alert and oriented X 3, normal motor function, normal sensory function, no focal deficits noted. [] Psychologic: Affect very anxious, judgement normal, mood normal. [] EKG: EKG: My interpretation of EKG shows a sinus rhythm at 91 bpm. Does have some nonspecific contour changes. In the anterior septal region. No findings of acute STEMI with contralateral changes. [] Radiology/Procedures: Radiology/Procedures: [][address] [address] IMAGING REPORT Signed PATIENT: JOI LOCOUNT: [id number] : 1955 LOCATION: ER AGE: 64 SEX: F EXAM STATUS: REG ER ORD. PHYSICIAN: JOHN MARCELINO MD REASON: dyspnea, ANXIETY X 2 DAYS PROCEDURE: CHEST PA & LATERAL Exam: Chest 2 views INDICATION: Dyspnea TECHNIQUE: Frontal and lateral views the chest Comparisons: 06/14/2019 FINDINGS: The cardiomediastinal silhouette and pulmonary vessels are within normal limits. The lung and pleural spaces are clear. IMPRESSION: No acute cardiopulmonary process. Electronically signed by: Chyna Gee MD (12/07/2019 11:41 PM) [id number] DICTATED AND SIGNED BY: CHYNA GEE MD DATE: 12/07/19 234 CC: JOHN MARCELINO MD; LAUREL JIM MD ~ [address] [place] [id number] IMAGING REPORT Signed PATIENT: JOI LOCOUNT: [id number] : 1955 LOCATION: ER AGE: 64 SEX: F EXAM STATUS: REG ER ORD. PHYSICIAN: JOHN MARCELINO MD REASON: Tachy, dyspnea, OMNI 350, 100ml PROCEDURE: CT ANGIOGRAPHY CHEST EXAM: CT ANGIOGRAPHY OF THE CHEST WITH AND WITHOUT CONTRAST. HISTORY: Dyspnea, tachycardia. TECHNIQUE: Computed tomographic angiography of the chest was performed before and after the intravenous administration of iodinated contrast. 3-D maximum intensity projections were also performed. One or more of the following individualized dose reduction techniques were utilized for this examination: 1. Automated exposure control. 2. Adjustment of the mA and/or kV according to patient size. 3. Use of iterative reconstruction technique. COMPARISON: None. FINDINGS: Images of the upper abdomen reveal a 1.9 x 1.5 cm nodule in the right adrenal gland measuring 31 Hounsfield units in attenuation. This is indeterminate by CT criteria. Another on the left measures 12 mm and 9 Hounsfield units. A second nodule in the left measures 14 mm and 18 Hounsfield units. These are likely benign adenomas. A small hiatal hernia contains mostly fat. Bone windows reveal no suspicious lesions. No pulmonary emboli are identified. The main pulmonary artery measures 3.1 cm. There is no aortic dissection or aneurysm. There are no pathologically enlarged mediastinal or axillary lymph nodes. There is no pleural or pericardial effusion. The heart is not enlarged. Coronary atherosclerotic calcifications are noted. There is a moderate thyroid goiter on the right greater than left, with mild intrathoracic extension bilaterally. There is mild to moderate centrilobular emphysema. There is mild dependent atelectasis without acute infiltrate. IMPRESSION: 1. No pulmonary embolism. 2. Mild to moderate centrilobular emphysema. 3. Correlate for mild pulmonary arterial hypertension. 4. Bilateral adrenal nodules are consistent with benign adenomas on the left. A 19 mm nodule on the right is indeterminate by CT criteria, but also likely reflects a benign adenoma in the absence of known malignancy. Comparison with any available prior CT could assess long-term stability. Electronically signed by: Liz Diaz MD (12/08/2019 2:07 AM) [facility] DICTATED AND SIGNED BY: MICHELLE DIAZ MD DATE: 12/08/19 020 CC: JOHN MARCELINO MD; LAUREL JIM MD ~ Course & Med Decision Making: Course & Med Decision Making Pertinent Labs and Imaging studies reviewed. (See chart for details) Pt. feeling much better at 0300. Requesting discharge. Review labs and risks. Still requesting discharge. Encourage pt. to stop smoking. If need clare off one per day or one per week until not smoking. Take Zithromax 250 day. Continue home breathing treatment s Follow up with Dr. Jim. Return if any concerns. Ativan 1 mg at HS prn. Must follow up with Dr. Jim. MUST STOP SMOKING. Impression: 1. Bronchitis 2. Tobacco Use 3. Leukocytosis 12.2 4. DM glucose 138 5. Mild Elevation D-dimer 0.87 6. Anxiety Disorder [] Dragon Disclaimer: Dragon Disclaimer: This electronic medical record was generated, in whole or in part, using a voice recognition dictation system. Departure Departure: Disposition: HOME/RESIDENCE PRIOR TO ADM Condition: STABLE Referrals: LAUREL JIM MD (PCP) Scripts Lorazepam (ATIVAN) 1 Mg Tablet 1 MG PO hs prn for panic attacks, #10 TAB Prov: JOHN MARCELINO MD 12/08/19 Azithromycin (ZITHROMAX) 250 Mg Tablet 250 MG PO DAILY for ANTI-BIOTIC for 5 Days, #5 TAB 0 Refills Prov: JOHN MARCELINO MD 12/08/19 Justification of Admission: Justification of Admission: Justification of Admission Dx: N/A Dragon Disclaimer This chart was dictated in whole or in part using Voice Recognition software in a busy, high-work load, and often noisy Emergency Department environment. It may contain unintended and wholly unrecognized errors or omissions. JOHN MARCELINO MD Dec 07, 2019 22:43
--- NOTE | 2019-12-07 23:14 | EKG ---
[address] [address] Test Date: 2019-12-07 Test Time: 23:10:41 Pat Name: JOI LOCO Department: Room: Gender: F Applied Researcher: : 1955 Requested By: JOHN MARCELINO Order Number: [id number] Reading MD: Adeel Cantu MD Measurements Intervals [place] Rate: 91 P: 68 SD: 170 QRS: 68 QRSD: 74 T: 64 QT: 356 QTc: 440 Interpretive Statements SINUS RHYTHM QRS(T) CONTOUR ABNORMALITY CONSISTENT WITH ANTEROSEPTAL INFARCT Electronically Signed On 12-09-2019 13:04:13 CDT by Adeel Cantu MD
[2019-12-07] MEDS ORDERED: IV RINGERS SOLUTION,LACTATED 1,000 ML IV SCH (23:15)
[2019-12-07 23:21] LABS: BARBITURATES NEG (NEG); BENZODIAZEPINES NEG (NEG); CANNABINOIDS NEG (NEG); COCAINE NEG (NEG); METHADONE NEG (NEG); OPIATES NEG (NEG); PHENCYCLIDINE NEG (NEG)
[2019-12-07 23:22] LABS: AMPHETAMINE/METHAMPHETAMINE NEG (NEG)
[2019-12-07 23:29] LABS: BACTERIA,URINE MOD /HPF (0-FEW); BILIRUBIN,URINE NEG (NEG); CLARITY,URINE CLEAR; COLOR,URINE YELLOW; GLUCOSE,URINE NEG (NEG); NITRITE,URINE NEG (NEG); RBC,URINE OCC /HPF (0-2); UROBILINOGEN,URINE 0.2 mg/dL (0.2 mg/dL)
[2019-12-07 23:30] LABS: SQUAMOUS EPITHELIAL CELL,UR FEW /LPF
[2019-12-07 23:35] LABS: BASO # 0.1 x10^3/uL (0.0-0.2); BASO % 1 % (0-3); EOS # 0.5 x10^3/uL (0.0-0.7); EOS % 4 % (0-3); HEMATOCRIT 38.2 % (36.0-47.0); HEMOGLOBIN 12.8 g/dL (12.0-15.5); LYMPH # 3.3 x10^3/uL (1.0-4.8); LYMPH % 27 % (24-48); MEAN CORPUSCULAR HEMOGLOBIN 29 pg (25-35); MEAN CORPUSCULAR HGB CONC 33 g/dL (31-37); MEAN CORPUSCULAR VOLUME 88 fL (79-100); MONO # 1.1 x10^3/uL (0.0-1.1); MONO % 9 % (0-9); NEUT # 7.2 x10^3uL (1.8-7.7); NEUT % 59 % (31-73); PLATELET COUNT 302 x10^3/uL (140-400); RED BLOOD COUNT 4.36 x10^6/uL (3.50-5.40); RED CELL DISTRIBUTION WIDTH 16.3 % (11.5-14.5); WHITE BLOOD COUNT 12.2 x10^3/uL (4.0-11.0)
--- NOTE | 2019-12-07 23:43 | RAD ---
Exam: Chest 2 views INDICATION: Dyspnea TECHNIQUE: Frontal and lateral views the chest Comparisons: 06/14/2019 FINDINGS: The cardiomediastinal silhouette and pulmonary vessels are within normal limits. The lung and pleural spaces are clear. IMPRESSION: No acute cardiopulmonary process. Electronically signed by: Chyna Bedolla MD (12/07/2019 11:41 PM) [id number]
[2019-12-07 23:49] LABS: CALCIUM 9.5 mg/dL (8.5-10.1); CREATININE 0.9 mg/dL (0.6-1.0); GFR 76.3; POTASSIUM 3.5 mmol/L (3.5-5.1)
[2019-12-07 23:59] LABS: ALBUMIN 3.9 g/dL (3.4-5.0); DIRECT BILIRUBIN 0.1 mg/dL (0.0-0.2); MAGNESIUM 2.1 mg/dL (1.8-2.4); TOTAL BILIRUBIN 0.2 mg/dL (0.2-1.0); TOTAL PROTEIN 7.1 g/dL (6.4-8.2)
[2019-12-08] MEDS ORDERED: ENOXAPARIN ** NOTE DOSE ** SYRINGE SQ ONE (00:45)
[2019-12-08] MEDS ORDERED: IOHEXOL 350 MG/ML 100 ML VIAL. IV ONE (01:00)
[2019-12-08] MEDS ORDERED: CONTRAST GIVEN MC PRN (01:00)
[2019-12-08 01:44] VITALS: BP 153/70
[2019-12-08] MEDS ORDERED: AZITHROMYCIN 250 MG TABLET. PO ONE (01:45)
[2019-12-08] MEDS ORDERED: cefTRIAXone SODIUM 1 GM VIAL ONE (01:55)
[2019-12-08] MEDS ORDERED: IV NORMAL SALINE 50ML 50 ML ONE (01:55)
--- NOTE | 2019-12-08 02:10 | RAD ---
EXAM: CT ANGIOGRAPHY OF THE CHEST WITH AND WITHOUT CONTRAST. HISTORY: Dyspnea, tachycardia. TECHNIQUE: Computed tomographic angiography of the chest was performed before and after the intravenous administration of iodinated contrast. 3-D maximum intensity projections were also performed. One or more of the following individualized dose reduction techniques were utilized for this examination: 1. Automated exposure control. 2. Adjustment of the mA and/or kV according to patient size. 3. Use of iterative reconstruction technique. COMPARISON: None. FINDINGS: Images of the upper abdomen reveal a 1.9 x 1.5 cm nodule in the right adrenal gland measuring 31 Hounsfield units in attenuation. This is indeterminate by CT criteria. Another on the left measures 12 mm and 9 Hounsfield units. A second nodule in the left measures 14 mm and 18 Hounsfield units. These are likely benign adenomas. A small hiatal hernia contains mostly fat. Bone windows reveal no suspicious lesions. No pulmonary emboli are identified. The main pulmonary artery measures 3.1 cm. There is no aortic dissection or aneurysm. There are no pathologically enlarged mediastinal or axillary lymph nodes. There is no pleural or pericardial effusion. The heart is not enlarged. Coronary atherosclerotic calcifications are noted. There is a moderate thyroid goiter on the right greater than left, with mild intrathoracic extension bilaterally. There is mild to moderate centrilobular emphysema. There is mild dependent atelectasis without acute infiltrate. IMPRESSION: 1. No pulmonary embolism. 2. Mild to moderate centrilobular emphysema. 3. Correlate for mild pulmonary arterial hypertension. 4. Bilateral adrenal nodules are consistent with benign adenomas on the left. A 19 mm nodule on the right is indeterminate by CT criteria, but also likely reflects a benign adenoma in the absence of known malignancy. Comparison with any available prior CT could assess long-term stability. Electronically signed by: Liz Diaz MD (12/08/2019 2:07 AM) [facility]
[2019-12-08] MEDS ORDERED: AZIT250T PO (03:17)
[2019-12-08] MEDS ORDERED: LORA-254 PO (03:17)
[2019-12-08 10:49] LABS: THYROID STIM HORMONE (TSH) 3.588 uIU/mL (0.358-3.740)
== END 2019-12-08 03:22 | disposition home or self-care (01) ==
LOC: EDBD 22:41 → ER 22:41
DX: J44.9 Chronic obstructive pulmonary disease, unspecified (principal); D72.829 Elevated white blood cell count, unspecified; E11.9 Type 2 diabetes mellitus without complications; R79.1 Abnormal coagulation profile; F41.9 Anxiety disorder, unspecified; I25.10 Atherosclerotic heart disease of native coronary artery without angina pectoris; F32.9 Major depressive disorder, single episode, unspecified; E78.00 Pure hypercholesterolemia, unspecified; I10 Essential (primary) hypertension; F17.210 Nicotine dependence, cigarettes, uncomplicated; E78.5 Hyperlipidemia, unspecified; E66.01 Morbid (severe) obesity due to excess calories; G47.33 Obstructive sleep apnea (adult) (pediatric); Z68.41 Body mass index [BMI] 40.0-44.9, adult; Z99.81 Dependence on supplemental oxygen; Z88.5 Allergy status to narcotic agent
CPT/HCPCS: 36415; 71046; 71275; 80048; 80061; 80076; 80307; 81001; 82550; 83690; 83735; 83880; 84443; 84484; 85025; 85379; 85610; 85730; 87086; 93005; 96372; 96374; 96375; 99285; J0456; J0696; J1650; J2060; J7120; Q9967

== ENCOUNTER → 2020-02-07 | Outpatient (CLI) | payer MEDICARE ==
[~2020-02-07] MED LIST changes: +AZIT250T PO; +LORA-254 PO
--- NOTE | 2020-02-07 10:17 | RAD ---
PROCEDURE: ABDOMEN SUPINE UPRIGHT CLINICAL INDICATION / HISTORY: Reason: SUPRAPUBIC ABDOMINAL PAIN, FREQUENT BOWEL MOVEMENTS / Spl. Instructions: / History: . TECHNIQUE: Supine and upright AP images of the abdomen was obtained. COMPARISON: 12/08/2019 CT angiogram chest FINDINGS: The lung bases are clear. A nonobstructive bowel gas pattern is present. No organomegaly or pathologic calcifications are identified. No acute osseous abnormality. IMPRESSION: No acute abdominal process. Electronically signed by: Reginaldo Urias MD (02/07/2020 10:14 AM) [id number]
== END | disposition home or self-care (01) ==
LOC: PMG 09:15
PROVIDERS: ATTEND Physician Assistant
DX: R10.2 Pelvic and perineal pain (principal); R14.3 Flatulence
CPT/HCPCS: 74019

== ENCOUNTER → 2020-03-19 | Outpatient (CLI) | payer MEDICARE ==
--- NOTE | 2020-03-19 11:46 | RAD ---
BILATERAL SCREENING MAMMOGRAM, 3-D History: Routine screening. Comparison: 03/18/2019, 02/05/2018, 12/12/2016, 12/01/2015. Technique: MLO and CC digital tomosynthesis (3D) images obtained. Radiologist reviewed these images on dedicated workstation. Findings: Breast Tissue Density B : There are scattered areas of fibroglandular density. There are no dominant masses, suspicious microcalcifications, or architectural distortion. IMPRESSION: No mammographic evidence of malignancy. Recommend routine screening. BI-RADS category 1: Negative. The images were reviewed with computer-aided detection. Patient information is entered into reminder system with a target due date for the next screening mammogram. Mammography is the most sensitive method for finding small breast cancers, but it does not detect them all and is not a substitute for careful clinical examination. A negative mammogram does not negate a clinically suspicious finding and should not result in delay in biopsying a clinically suspicious abnormality. "Our facility is accredited by the [employer] Mammography Program." Electronically signed by: Manfred Vidal MD (03/19/2020 11:44 AM) [id number]
== END | disposition home or self-care (01) ==
LOC: MAMMO 08:10
PROVIDERS: ATTEND Family Medicine
DX: Z12.31 Encounter for screening mammogram for malignant neoplasm of breast (principal)
CPT/HCPCS: 77063; 77067

== ENCOUNTER 2020-05-22 02:35 | Emergency (ER) | payer MEDICARE ==
[~2020-05-22] VITALS: Ht 165.1 cm; Wt 113.0 kg
[~2020-05-22 02:35] MED LIST changes: +AMLO-187 PO; -AMLO10TA8 PO
[2020-05-22] MEDS ORDERED: ONDANSETRON ODT 4 MG TAB.RAPDIS PO ONE (04:00)
[2020-05-22 04:02] VITALS: BP 164/99
[2020-05-22] MEDS ORDERED: PROM25TA10 PO (04:14)
[2020-05-22] MEDS ORDERED: AMOX1TAB61 PO (04:14)
--- NOTE | 2020-05-22 04:14 | PHYS DOC ---
Past History Past Medical History: Anxiety, Asthma, CAD, COPD, Depression, High Cholesterol, Hypertension, Lung Disease, Other Past Surgical History: Other Additional Past Surgical Histo: sinus surgery Smoking: Less than 1pk/day Alcohol Use: None Drug Use: None General Adult EDM: Chief Complaint: NAUSEA/VOMITING/DIARRHEA HPI: HPI: Patient is a 64-year-old female coming in for multiple complaints. Says she does have a 2 days of vomiting and diarrhea, 4 episodes of vomiting that was nonbloody or bilious. Said a few episodes of diarrhea that is nonbloody and nonmelanotic. Denies any fevers or cough. Has a history of COPD and wears oxygen at night. Also complaining of left ear pain for 1 day. Patient states she gets frequent ear infections, usually on the right. Was treated with amoxicillin about 2 months ago. Review of Systems: Review of Systems: Constitutional: Denies fever or chills Eyes: Denies change in visual acuity HENT: Denies nasal congestion or sore throat, ear pain in left ear Respiratory: Denies cough or shortness of breath Cardiovascular: Denies chest pain or edema GI: Vague abdominal pain, nausea, vomiting, diarrhea, no blood in stools or emesis. : Denies dysuria Musculoskeletal: Denies back pain or joint pain Integument: Denies rash Neurologic: Denies headache, focal weakness or sensory changes Endocrine: Denies polyuria or polydipsia Lymphatic: Denies swollen glands Psychiatric: Denies depression or anxiety Current Medications: Current Meds: Current Medications Medications (Trade) Dose Ordered Sig/Bashir Start Time Stop Time Status Last Admin Dose Admin Ondansetron HCl (Zofran Odt) 4 mg 1X ONCE 05/22/20 04:00 05/22/20 04:01 UNV 05/22/20 04:00 4 MG Allergies: Allergies: Allergies Coded Allergies Type Severity Reaction Last Updated Verified codeine Allergy Intermediate 02/16/16 Yes hydrocodone Allergy Intermediate 02/16/16 Yes Physical Exam: PE: Constitutional: Well developed, well nourished, no acute distress, non-toxic appearance. [] HENT: Normocephalic, atraumatic, bilateral external ears normal, oropharynx moist, no oral exudates, nose normal. [] Right TM occluded by wax, no tenderness on tragus. Left TM bulging and erythematous, no tenderness on tragus. Eyes: PERRLA, EOMI, conjunctiva normal, no discharge. [] Neck: Normal range of motion, no tenderness, supple, no stridor. [] Cardiovascular:Heart rate regular rhythm, no murmur [] Lungs & Thorax: Bilateral breath sounds clear to auscultation [] Abdomen: Bowel sounds normal, soft, no tenderness, no masses, no pulsatile masses. [] Skin: Warm, dry, no erythema, no rash. [] Back: No tenderness, no CVA tenderness. [] Extremities: No tenderness, no cyanosis, no clubbing, ROM intact, no edema. [] Neurologic: Alert and oriented X 3, normal motor function, normal sensory function, no focal deficits noted. [] Psychologic: Affect normal, judgement normal, mood normal. [] Current Patient Data: Vital Signs: Vital Signs Date Time Temp Pulse Resp B/P (MAP) Pulse Ox O2 Delivery O2 Flow Rate FiO2 05/22/20 02:35 97.7 85 18 153/70 (97) Room Air EKG: EKG: [] Radiology/Procedures: Radiology/Procedures: [] Heart Score: Risk Factors: Risk Factors: DM, Current or recent (<one month) smoker, HTN, HLP, family history of CAD, obesity. Risk Scores: Score 0 - 3: 2.5% MACE over next 6 weeks - Discharge Home Score 4 - 6: 20.3% MACE over next 6 weeks - Admit for Clinical Observation Score 7 - 10: 72.7% MACE over next 6 weeks - Early Invasive Strategies Course & Med Decision Making: Course & Med Decision Making Pertinent Labs and Imaging studies reviewed. (See chart for details) [] Dragon Disclaimer: Dragon Disclaimer: This electronic medical record was generated, in whole or in part, using a voice recognition dictation system. Departure Departure: Impression: Primary Impression: Otitis media, left Additional Impression: Vomiting and diarrhea Disposition: 01 DC HOME SELF CARE/HOMELESS Condition: STABLE Referrals: LAUREL ESPINOSA MD (PCP) Patient Instructions: Diet for Diarrhea, Adult Scripts Amoxicillin/Potassium Clav (AUGMENTIN 875-125 TABLET) 1 Each Tablet 1 TAB PO BID for Otitis media for 10 Days, #20 TAB 0 Refills Prov: SHERIF PERES MD 05/22/20 Promethazine Hcl (PROMETHAZINE HCL) 25 Mg Tablet 1 TAB PO PRN Q6HRS for nausea for 10 Days, #20 TAB Prov: SHERIF PERES MD 05/22/20 SHERIF PERES MD May 22, 2020 04:14
== END 2020-05-22 04:20 | disposition home or self-care (01) ==
LOC: ER 02:35
DX: R11.2 Nausea with vomiting, unspecified (principal); R19.7 Diarrhea, unspecified; H66.92 Otitis media, unspecified, left ear; J44.9 Chronic obstructive pulmonary disease, unspecified; I25.10 Atherosclerotic heart disease of native coronary artery without angina pectoris; E78.00 Pure hypercholesterolemia, unspecified; I10 Essential (primary) hypertension; F17.200 Nicotine dependence, unspecified, uncomplicated; Z88.5 Allergy status to narcotic agent
CPT/HCPCS: 99283; Q0162

== ENCOUNTER → 2020-09-24 | Outpatient (CLI) | payer MEDICARE ==
[~2020-09-24] MED LIST changes: +AMOX1TAB61 PO; -CLIN300C8 PO; +CLIN300C9 PO; +PROM25TA10 PO
--- NOTE | 2020-09-24 17:07 | RAD ---
XR FEMUR_LEFT 1 VIEW History: Reason: / Spl. Instructions: / History: Pain Technique: 2 views left femur. Comparison: None. Findings: Normal alignment. No fracture. 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 Impression: 1. No acute osseous abnormality. 2. Mild left hip DJD. 3. Moderate left knee DJD. Electronically signed by: Armando Pretty DO (09/24/2020 5:05 PM) [id number]
== END ==
LOC: RAD 11:03
PROVIDERS: ATTEND Physician Assistant
DX: M17.12 Unilateral primary osteoarthritis, left knee (principal); M16.12 Unilateral primary osteoarthritis, left hip
CPT/HCPCS: 73552

== ENCOUNTER → 2020-10-29 | Outpatient (CLI) | payer MEDICARE ==
--- NOTE | 2020-10-29 14:24 | RAD ---
Site ID: [id number] EXAMINATION: US EXT NON VASC LEFT. HISTORY: 64 years Female Reason: LT THIGH LUMP / Spl. Instructions: / History: . . COMPARISON: None. FINDINGS: Areas of the lumpiness in the left thigh are examined with the no definite mass or fluid collection s een. IMPRESSION: Unremarkable exam. If the findings are clinically suspicious or there is continued growth, then furth er evaluation with MRI without and with contrast would BE suggested. Electronically signed by: Mega Mahan MD (10/29/2020 2:22 PM) [id number]
== END ==
LOC: RAD 13:06
PROVIDERS: ATTEND Family Medicine
DX: R22.42 Localized swelling, mass and lump, left lower limb (principal)
CPT/HCPCS: 76881

== ENCOUNTER 2021-03-20 00:45 | Emergency (ER) | payer MEDICARE ==
[~2021-03-20] VITALS: Ht 154.9 cm; Wt 114.7 kg
[2021-03-20] MEDS ORDERED: ORPH-16 PO (01:03)
--- NOTE | 2021-03-20 01:03 | PHYS DOC ---
Past History Past Medical History: Anxiety, Arthritis, Asthma, CAD, COPD, Depression, High Cholesterol, Hypertension, Lung Disease, Other Past Surgical History: Other Additional Past Surgical Histo: sinus surgery Smoking: Cigarettes, Less than 1pk/day Alcohol Use: None Drug Use: None General Adult EDM: Chief Complaint: LOWER EXT PAIN HPI: HPI: 65-year-old female presents via EMS with report of left lower extremity pain to posterior aspect that has been ongoing for the past day. Patient reports she was seen at [facility] and received a steroid injection. Patient was continued on steroids as well as given prescription for tramadol. Patient reports upon waking this morning to use the restroom she had significant pain with any ambulation. Patient does report she has a walker at home. Patient reports history of chronic arthritis. Denies fever or chills. Denies loss of bowel or bladder. Denies trauma. Review of Systems: Review of Systems: Constitutional: Denies fever or chills Eyes: Denies redness or eye pain HENT: Denies nasal congestion or sore throat Respiratory: Denies cough or shortness of breath Cardiovascular: Denies chest pain or palpitations GI: Denies abdominal pain, nausea, or vomiting : Denies dysuria or hematuria Musculoskeletal: Reports low back pain and left lower extremity pain Integument: Denies rash or skin lesions Neurologic: Denies headache, focal weakness or sensory changes; denies loss of bowel or bladder. Complete systems were reviewed and found to be within normal limits, except as documented in this note. Allergies: Allergies: Allergies Coded Allergies Type Severity Reaction Last Updated Verified codeine Allergy Intermediate 02/16/16 Yes hydrocodone Allergy Intermediate 02/16/16 Yes Physical Exam: PE: Constitutional: Well developed, well nourished, no acute distress, non-toxic appearance HENT: Normocephalic, atraumatic Eyes: Conjunctiva normal, no discharge Neck: Normal range of motion, supple Lungs & Thorax: No respiratory distress, equal chest rise and fall Abdomen: Soft, no tenderness; pelvis stable and nontender Skin: Warm, dry, no erythema, no rash Back: No midline tenderness, no CVA tenderness Extremities: Left lower extremity tenderness with range of motion, no calf tenderness ROM intact, trace bilateral lower extremity edema Neurologic: Alert and oriented X 3, normal motor function, normal sensory function, no focal deficits noted Psychologic: Affect normal, judgment normal Current Patient Data: Vital Signs: Vital Signs Date Time Temp Pulse Resp B/P (MAP) Pulse Ox O2 Delivery O2 Flow Rate FiO2 03/20/21 00:53 98.0 87 22 152/93 (112) 96 Room Air EKG: EKG: [] Radiology/Procedures: Radiology/Procedures: [] Heart Score: C/O Chest Pain: N/A Course & Med Decision Making: Course & Med Decision Making Patient presents with chronic left lower extremity pain which is likely secondary to arthritis as well as possible sciatica. Patient seen previously for same at [facility] and received an injection to her back. Patient also prescribed tramadol as well as continued steroid. Patient reports upon getting up to use the restroom this morning unable to bear weight secondary to pain. EMS was called. Patient neurologically intact. Denies loss of bowel or bladder. Symptomatic treatment provided. Patient stable for discharge with outpatient follow-up with PCP/pain management. Pain management referral provided. Discussed findings and plan with patient, who acknowledges understanding and agreement. Shannan Disclaimer: Shannan Disclaimer: This electronic medical record was generated, in whole or in part, using a voice recognition dictation system. Departure Departure: Impression: Primary Impression: Sciatic leg pain Additional Impression: Arthritis Disposition: HOME / SELF CARE / HOMELESS Condition: STABLE Referrals: LAUREL ESPINOSA MD (PCP) Patient Instructions: Arthritis, Nonspecific, [id number], Chronic Pain Management, Sciatica, [id number] Additional Instructions: Continue previously prescribed steroid and pain medication as directed. May ICE area of discomfort 20 min on then leave off next 20 mins. Repeat several times daily as needed for pain. Call and make an appointment to follow with pain management: Dr. Brayan Mckeon [id number] [facility], [address] [place] [address] Scripts Orphenadrine Citrate (ORPHENADRINE CITRATE) 100 Mg Tablet.er 1 TAB PO BID PRN for MUSCLE PAIN, #14 TAB 0 Refills Prov: ALEJA ISRAEL DO 03/20/21 ALEJA ISRAEL DO Mar 20, 2021 01:03
[2021-03-20 01:21] VITALS: BP 165/60
[2021-03-20] MEDS ORDERED: ORPHENADRINE CITRATE 60 MG/2 ML VIAL. IM ONE (01:30)
[2021-03-20] MEDS ORDERED: KETOROLAC 15 MG/ML VIAL. IM ONE (01:30)
== END 2021-03-20 01:54 | disposition home or self-care (01) ==
LOC: ER 00:45
DX: M79.605 Pain in left leg (principal); M54.42 Lumbago with sciatica, left side; M19.90 Unspecified osteoarthritis, unspecified site; J44.9 Chronic obstructive pulmonary disease, unspecified; E78.5 Hyperlipidemia, unspecified; I10 Essential (primary) hypertension; F17.210 Nicotine dependence, cigarettes, uncomplicated; Z88.5 Allergy status to narcotic agent
CPT/HCPCS: 96372; 99284; J1885; J2360

== ENCOUNTER 2021-05-06 15:54 | Emergency (ER) | payer MEDICARE ==
[~2021-05-06] VITALS: Ht 154.9 cm; Wt 114.7 kg
[~2021-05-06 15:54] MED LIST changes: +CLIN-95 PO; -CLIN300C9 PO; +ORPH-16 PO
--- NOTE | 2021-05-06 16:29 | PHYS DOC ---
Past History Past Medical History: Anxiety, Arthritis, Asthma, CAD, COPD, Depression, High Cholesterol, Hypertension, Lung Disease, Other Past Surgical History: Other Additional Past Surgical Histo: sinus surgery Smoking: Cigarettes, Less than 1pk/day Alcohol Use: None Drug Use: None General Adult EDM: Chief Complaint: LOWER EXT PAIN HPI: HPI: 65-year-old female presents with right lower extremity pain and swelling. The pain is an intense cramping sensation. Patient states that she started to have pain in her calf and around her knee the right leg yesterday. She states that she is worried about a blood clot. No history of blood clots. She has not had any trauma or prolonged travel. She denies fever, chills, shortness of breath. Review of Systems: Review of Systems: Constitutional: Denies fever or chills Eyes: Denies change in visual acuity HENT: Denies nasal congestion or sore throat Respiratory: Denies cough or shortness of breath Cardiovascular: Denies chest pain or edema GI: Denies abdominal pain, nausea, vomiting, bloody stools or diarrhea : Denies dysuria Musculoskeletal: Right lower leg and knee pain Integument: Denies rash Neurologic: Denies headache, focal weakness or sensory changes Endocrine: Denies polyuria or polydipsia Lymphatic: Denies swollen glands Psychiatric: Denies depression or anxiety Allergies: Allergies: Allergies Coded Allergies Type Severity Reaction Last Updated Verified codeine Allergy Intermediate 02/16/16 Yes hydrocodone Allergy Intermediate 02/16/16 Yes Physical Exam: PE: Constitutional: Well developed, well nourished, morbidly obese, no acute distres s, non-toxic appearance. [] HENT: Normocephalic, atraumatic, bilateral external ears normal, oropharynx pavan st, no oral exudates, nose normal. [] Eyes: PERRLA, EOMI, conjunctiva normal, no discharge. [] Neck: Normal range of motion, no tenderness, supple, no stridor. [] Cardiovascular: Heart rate regular rhythm, no murmur [] Lungs & Thorax: Bilateral breath sounds clear to auscultation [] Abdomen: Bowel sounds normal, soft, no tenderness, no masses, no pulsatile masses. [] Skin: Warm, dry, no erythema, no rash. [] Back: No tenderness, no CVA tenderness. [] Extremities: Tenderness of the right calf, right calf greater diameter than left. [] Neurologic: Alert and oriented X 3, normal motor function, normal sensory function, no focal deficits noted. [] Psychologic: Affect normal, judgement normal, mood anxious. [] Current Patient Data: Vital Signs: Vital Signs Date Time Temp Pulse Resp B/P (MAP) Pulse Ox O2 Delivery O2 Flow Rate FiO2 05/06/21 16:10 98.6 84 16 97 Room Air EKG: EKG: [] Radiology/Procedures: Radiology/Procedures: [] Impressions: RIGHT LEG VENOUS DOPPLER STUDY: Clinical indications: Right leg swelling and pain. Findings: Duplex sonography (including salter scale evaluation and color flow and waveform spectral analysis) of the proximal aspect of the greater saphenous vein and proximal aspect of the profunda femoral vein and the entire length of the common femoral and superficial femoral and popliteal veins and the tibioperoneal trunk and the proximal aspect of the posterior tibial and peroneal veins of the right leg was performed. Normal compressibility, augmentation of color Doppler flow after calf compression, and respiratory variation of Doppler flow is seen. Thus, there are no sonographic findings of deep venous thrombosis within these veins. Impression: There are no sonographic findings of deep venous thrombosis within the veins discussed above of the right lower extremity. Electronically signed by: Jennifer Walton MD (05/06/2021 4:50 PM) [id number] DICTATED AND SIGNED BY: JENNIFER WALTON MD DATE: 05/06/21 1649 CC: RAJAN DAVIS DO; FRANCISCALUIS ~MTH0 0 Heart Score: C/O Chest Pain: N/A Risk Factors: Risk Factors: DM, Current or recent (<one month) smoker, HTN, HLP, family history of CAD, obesity. Risk Scores: Score 0 - 3: 2.5% MACE over next 6 weeks - Discharge Home Score 4 - 6: 20.3% MACE over next 6 weeks - Admit for Clinical Observation Score 7 - 10: 72.7% MACE over next 6 weeks - Early Invasive Strategies Course & Med Decision Making: Course & Med Decision Making Pertinent Labs and Imaging studies reviewed. (See chart for details) The patient's ultrasound is negative for DVT. Patient states that she has rand om swelling and inflammation of the joints from time to time. She is currently getting worked up for this by her primary care physician. Her pain is likely arthritis or this undiagnosed inflammatory disorder. She does not appear to have any acute emergency condition. She is stable for discharge at this time [] Shannan Disclaimer: Shannan Disclaimer: This electronic medical record was generated, in whole or in part, using a voice recognition dictation system. Departure Departure: Impression: Primary Impression: Right leg pain Disposition: HOME / SELF CARE / HOMELESS Condition: STABLE Referrals: LUIS ESPINOSA (PCP) Patient Instructions: Knee Pain, [id number] RAJAN DAVIS DO May 06, 2021 16:29
--- NOTE | 2021-05-06 16:53 | RAD ---
RIGHT LEG VENOUS DOPPLER STUDY: Clinical indications: Right leg swelling and pain. Findings: Duplex sonography (including salter scale evaluation and color flow and waveform spectral maggy lysis) of the proximal aspect of the greater saphenous vein and proximal aspect of the profunda femor al vein and the entire length of the common femoral and superficial femoral and popliteal veins and t he tibioperoneal trunk and the proximal aspect of the posterior tibial and peroneal veins of the righ t leg was performed. Normal compressibility, augmentation of color Doppler flow after calf compressio n, and respiratory variation of Doppler flow is seen. Thus, there are no sonographic findings of deep venous thrombosis within these veins. Impression: There are no sonographic findings of deep venous thrombosis within the veins discussed ab ove of the right lower extremity. Electronically signed by: Sulaiman Walton MD (05/06/2021 4:50 PM) [id number]
[2021-05-06 17:29] LABS: BILIRUBIN,URINE NEG (NEG); CLARITY,URINE CLEAR; COLOR,URINE YELLOW; GLUCOSE,URINE NEG (NEG); NITRITE,URINE NEG (NEG); UROBILINOGEN,URINE 0.2 mg/dL (0.2 mg/dL)
[2021-05-06 17:30] LABS: BACTERIA,URINE 0 /HPF (0-FEW); RBC,URINE OCC /HPF (0-2); SQUAMOUS EPITHELIAL CELL,UR MOD /LPF
[2021-05-06] MEDS ORDERED: KETOROLAC 60 MG/2 ML VIAL. IM ONE ×2 (17:35→17:45)
== END 2021-05-06 17:40 | disposition home or self-care (01) ==
LOC: ER 15:54
DX: M79.604 Pain in right leg (principal); J44.9 Chronic obstructive pulmonary disease, unspecified; E78.5 Hyperlipidemia, unspecified; F17.210 Nicotine dependence, cigarettes, uncomplicated; I10 Essential (primary) hypertension; Z88.6 Allergy status to analgesic agent
CPT/HCPCS: 81001; 93971; 96372; 99284; J1885